=== PATIENT | male | born 2000 ===

== ENCOUNTER 2025-01-16 09:00 | Day surgery (SDC) | payer OTHER ==
[2025-01-16] MEDS ORDERED: CEFAZOLIN SODIUM 1,000 MG VIAL ONE (09:35)
[2025-01-16] MEDS ORDERED: POVIDONE-IODINE 118 ML BOTT TOP ONE (12:23)
[2025-01-16] MEDS ORDERED: BUPIVACAINE HCL/MPF 0.5% 30ML VIAL ONE (12:31)
[2025-01-16] MEDS ORDERED: LIDOCAINE HCL 1%/EPINEPHRINE 20ML VIAL IJ ONE (12:31)
[2025-01-16] MEDS ORDERED: TAMSULOSIN HCL 0.4 MG CAP PO ONE ×2 (21:20→21:30)
[2025-01-16] MEDS ORDERED: MORPHINE SULFATE 4 MG/ML CARTRIDGE IV ONE (21:30)
== END 2025-01-16 23:15 | disposition home or self-care (01) ==
LOC: CIR.AMB 09:00
PROVIDERS: ATTEND Colon & Rectal Surgery
DX: L05.91 Pilonidal cyst without abscess (principal); S31.000A Unspecified open wound of lower back and pelvis without penetration into retroperitoneum, initial encounter